=== PATIENT | male | born 1975 | race Caucasian/White ===

== ENCOUNTER 2020-10-24 14:25 | Outpatient (CLI) | payer BC, SELFPAY | END 2020-10-24 14:26 | disposition home or self-care (01) | LOC: ANHAUDIO 14:26 | PROVIDERS: Visit Provider Otolaryngology | DX: H72.90 Unspecified perforation of tympanic membrane, unspecified ear (principal) | CPT/HCPCS: 92557; 92567 ==

== ENCOUNTER 2023-01-10 13:19 | Emergency (ER) | payer BC, SELFPAY ==
[2023-01-10 13:31] VITALS: BP 131/85; PULSE 60; RESP 18; TEMP 36.7; O2SAT 99
--- NOTE | 2023-01-10 13:31 | ED.EAR ---
HPI - Ear Problem General Chief complaint: Ear Stated complaint: Rt Ear Irritation Time Seen by Provider: 01/10/23 13:37 Source: patient Mode of arrival: ambulatory Limitations: no limitations History of Present Illness HPI Narrative: 47 y/o male with hx chronic ruptured TMs presented for c/o right ear pain. States he was diagnosed with ear infection one week ago following a possible injury. States at a color run he had large amount of powder thrown into the right ear. Pt was then seen by pcp, Rx was given for oral cefdinir 01/04, and he reports compliance. However, he states symptoms worsened last night with pain surrounding the ear, yellow drainage, and worsening of already decreased hearing. Also reports the right jaw is painful to close and cheek feels tender. He took ibuprofen. Denies tinnitus, dizziness, facial numbness, n/v/f/c. Has been following with ENT for years due to TM injury, and was told he needs surgical repair of TMs. MD Complaint: ear pain Related Data Allergies Allergy/AdvReac Type Severity Reaction Status Date / Time No Known Allergies Allergy Verified 11/07/20 15:17 Review of Systems Review of Systems: CONSTITUTIONAL: Denies malaise, chills, or fever. EYES: Denies visual changes, redness, or discharge. ENT: Denies rhinorrhea, congestion, sinus pain, and sore throat. Reports ear pain CARDIOVASCULAR: Denies chest pain, palpitations, or edema. RESPIRATORY: Denies cough or dyspnea. GASTROINTESTINAL: Denies abdominal pain, nausea, vomiting, diarrhea SKIN: Denies rash or itching. MUSCULOSKELETAL: Denies myalgia. NEUROLOGIC: Denies headache. All systems reviewed & are unremarkable except as noted in HPI and below PMFSH Past Medical History Medical History (Updated 01/10/23 @ 15:09 by Mallika Bragg APRN) Conductive hearing loss in right ear Social History Social History Alcohol intake: current Substance use: never Comments At time of signature, agree with nursing past medical, surgical, social and family history. There is no relevant family history pertinent to the presenting complaint Exam Narrative: GENERAL: appears in mild pain, in no acute distress. EYES: PERRLA, conjunctivae clear ENT: Nares clear. Mucous membranes moist. Left TM pearly martinez with 2 holes noted. No effusion. Right external canal erythematous, swollen with yellow drainage; tender canal; unable to fully visualize the TM, the visualized portion is not erythematous; Right tragal tenderness. No mastoid tenderness or erythema. Oropharynx not erythematous without lesions. No drooling, no hoarseness, no trismus, uvula midline. NECK: Supple. No lymphadenopathy CHEST: Clear to auscultation, breath sounds equal. HEART: Regular rate and rhythm. No murmur heard. SKIN: Warm, dry, no rash. NEURO: Alert and oriented x3. PSYCH: Normal mood and affect Course Course Emergency Course: Patient is aware of diagnosis, understands and agrees to treatment plan. Anticipatory guidance given. Patient agrees to follow-up as directed and is aware of reasons to seek care at the emergency department. Portions of this record may have been created with voice recognition software Level of Care: Express Care Visit Vital Signs Vital signs: Vital Signs Temperature 98.0 F 01/10/23 13:31 Pulse Rate 60 01/10/23 13:31 Respiratory Rate 18 01/10/23 13:31 Blood Pressure 131/85 01/10/23 13:31 Pulse Oximetry 99 01/10/23 13:31 Oxygen Delivery Room Air 01/10/23 13:31 Temperature 98.0 F 01/10/23 13:31 Pulse Rate 60 01/10/23 13:31 Respiratory Rate 18 01/10/23 13:31 Blood Pressure 131/85 01/10/23 13:31 Pulse Oximetry 99 01/10/23 13:31 Oxygen Delivery Room Air 01/10/23 13:31 Reviewed Medical Decision Making MDM Narrative Medical decision making narrative: Discussed physical exam findings consistent with otitis externa. Will send prescription for Ciprod
== END 2023-01-10 14:00 | disposition home or self-care (01) ==
PROVIDERS: Emergency Provider Nurse Practitioner Family
DX: H60.501 Unspecified acute noninfective otitis externa, right ear (principal)
CPT/HCPCS: 99213; G0463

== ENCOUNTER 2023-06-10 12:58 | Outpatient (CLI) | payer BC, SELFPAY ==
--- NOTE | 2023-06-10 15:46 | ECG_ITS ---
SEE SCANNED COPY FOR CONFIRMED REPORT MTDD
== END 2023-06-10 12:59 | disposition home or self-care (01) ==
PROVIDERS: Visit Provider Otolaryngology
DX: Z01.818 Encounter for other preprocedural examination (principal); I10 Essential (primary) hypertension
CPT/HCPCS: 93005

== ENCOUNTER 2023-06-14 03:02 | Day surgery (SDC) | payer BC, SELFPAY ==
[2023-06-07 12:41] VITALS: BMI 30.3
--- NOTE | 2023-06-07 12:46 | PC.NURSE ---
Report to the Outpatient Waiting Room, entrance under the green pavilion located off [facility], at time 8:30 on date 06/14/23. Planned Procedure Time: 10:30. Time changes happen often and if your time is changed the preop area will call you the afternoon before. - You and your visitor will be asked to self-screen and do not enter if you have any COVID symptoms. - A mask is optional within the hospital at this time. Patients may have clear liquids (water, carbonated beverages, clear teas, apple juice) until 3 hours prior to surgery (7:30) with a maximum of 20 ounces. - No food from midnight until time of surgery Take the following medications with a SIP of water the morning of surgery: PROPRANOLOL, SERTRALINE DO NOT STOP ANY OF YOUR OTHER PRESCRIPTION MEDICATIONS PRIOR TO SURGERY ?EXCEPT THE FOLLOWING Medications to discontinue per physician: N/A Date to take last dose: N/A Please no make-up, nail guyanese, hairspray, perfume, deodorant, or body powder the day of surgery. No jewelry (including any body piercings) or valuables the day of surgery, leave them at home. Please take a shower or bath the night before, or the morning of, surgery with an antibacterial soap. Wear comfortable, loose fitting clothing. - Jewelry must be removed prior to entering the operating room. Rings and piercings that are not removed may be cut off. - The hospital will not accept responsibility for valuables. - Please leave all valuables, including medications, at home the day of surgery. If you are going home after surgery, a licensed piledriver carpenter must drive you home. - NO public transportation without another adult if you receive anesthesia. - We recommend that an adult stay with you for 24 hours following discharge. - We also recommend that you do not drive, make important decision, drink alcoholic beverages, or take any drugs that were not prescribed by your health care provider for at least 24 hours after your discharge time. Follow any additional instructions given to you from your surgeon. If you or anyone in your household have experienced Covid symptoms in the past week, please notify your surgeon or the nurse liaison at the phone number below for possible testing. Telephone instructions given to BIANCA CISNEROS and asked if any additional questions and then verbalized understanding. Patient advised to call surgeon office or pre surgery nurse liaison [phone] if any additional questions.
[2023-06-14] VITALS (7 sets, daily range): BP systolic 109–127; BP diastolic 56–89; PULSE 52–82; RESP 14–16; TEMP 36–36.6; O2SAT 96–100; BMI 30.2
--- NOTE | 2023-06-14 09:33 | PM.IMHP ---
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 Social History Social History Smoking status: Never smoker Alcohol intake: current Alcohol use details: RARE Substance use: never Substance use type: does not use Living arrangements: with family Spiritual care concerns: No Meds Home Medications and Allergies Home Medications Medication Instructions Recorded Confirmed Type propranolol 60 mg capsule,24 120 mg PO DAILY 06/07/23 06/14/23 History hr,extended release sertraline 50 mg tablet 75 mg PO DAILY 06/07/23 06/14/23 History Allergies Allergy/AdvReac Type Severity Reaction Status Date / Time No Known Allergies Allergy Verified 06/14/23 08:52 Vital Signs Vital Signs - 24 hr 06/14/23 08:55 Temperature 36.6 C Pulse Rate 52 L Respiratory Rate 14 Blood Pressure 126/89 Pulse Oximetry 98 Oxygen Delivery Room Air Exam Narrative: Right 50% TM perforation, dry edges, no infection. rest of exam wnl Assessment and Plan Assessment and plan (1) Central perforation of tympanic membrane, right ear: Code(s): H72.01 - Central perforation of tympanic membrane, right ear Status: Acute Plan Right medial graft tympanoplasty. r/b/a reviewed, right ear marked, all questions answered for the pt who understands and agrees to proceed. refer to outpt H&P for further detail.
--- NOTE | 2023-06-14 09:34 | WPDHPUPDATE1 ---
History and Physical Update Update Date/Time: 06/14/23 09:34 History and Physical has been reviewed, including an updated exam of the patient. There are NO changes in the patient's condition. Risks, benefits, and alternatives have been discussed and questions answered. Patient agrees to proceed with procedure.
--- NOTE | 2023-06-14 09:35 | P.OP_ITS ---
Procedure Note - Detailed Date of Procedure 06/14/23 Pre-op Diagnosis tympanic membrane perforation right ear Post-op Diagnosis Same Procedure Performed Right tympanoplasty, medial fascial graft Surgeon Antoine Schroeder MD Anesthesia General Indications right TM perforation Findings right 30-40% central perforation, medial fascial graft Description of Procedure On the date of surgery, the patient was identified in the preoperative holding area.? The right ear was marked indicating the correct side of surgery.? They consented to surgery and was brought back to the operating room and placed under general anesthesia.? A timeout was performed verifying the correct patient identity and procedure to be performed.? The bed was rotated 180 degrees and a small amount of hair was trimmed from the postauricular area.? They were then prepped and draped in standard fashion for right sided tympanoplasty. Attention first was directed through the ear canal.? Cerumen was removed under binocular microscopy and the perforation was examined and found to be 40-50% of the size of the tympanic membrane.? The middle ear space was dry.? The edges of the perforation were freshened using a black pick and microcup forceps.? Next, a 4 quadrant injection was performed with 1% lidocaine with 1:100k epinephrine.? The postauricular sulcus was also injected.? Using an angled and straight [place] blade, a vascular strip was elevated and tympanomeatal flap incisions were made.? The tympanomeatal flap was then elevated partially and a cotton ball soaked in 1:1000 epinephrine diluted with 10cc of saline was placed in the canal . Next, attention was directed behind the ear.? An incision was made in the post- auricular sulcus.? Using bovie electrocautery, dissection was performed through the subcutaneous tissues down to the level of the fascia.? The temporalis fascia was then identified and dissected free superficially and deep.? A 15 blade was used to incise through the fascia and then was elevated.? A 2x2cm window of fa scia was then harvested, flattened on a niurka block and then placed in a graft press for 5 minutes, then opened to dry. While the graft was prepared, the tympanomeatal flap was elevated and the marshall ulus was lifted out of the annular groove.? The middle ear space was entered with a pick and the annulus was fully elevated out of the groove and the tympanomeatal flap was completely elevated.? Several small pieces of gelfoam were placed in the middle ear space.? Next, the graft was? placed in the canal and in the middle ear space medial to the [place] tympanic membrane.? Some manipulation allowed it to cover the entire perforation.? Gelfoam was then packed in the middle ear space further to bulk out the graft.? Once satisfied with the positioning covering the entire perforation, the tympanomeatal flap and graft were laid down.? The ear canal was further packed with gelfoam to the cartilaginous meatus.? The postauricular incision was then closed with 3-0 vicryl, 4-0 monocryl and dermabond in a layered fashion.? The canal was filled with mupirocin ointment and a cotton ball was placed in the meatus.? The drapes were taken down and care of the patient was returned to anesthesia who woke them up in the OR and transferred to the PACU for recovery in stable condition without complication. Estimated Blood Loss 5 Drains No Packing Yes (gelfoam) Pathology None sent Complications No immediate complications Condition Stable Disposition PACU
--- NOTE | 2023-06-14 09:56 | WPDANESEPPF ---
Anes - Initial Pre Proc Eval Procedure: Operation Date: 06/14/23 10:30 Proposed Procedures p Right Ear Tympanoplasty - Antoine Schroeder MD Date/Time: 06/14/23 09:56 Surgeon: Antoine Schroeder MD Pre Op Diagnosis: tympanic membrane perforation right ear Patient Data Age: 48 Gender: M Height: 1.91 m Weight: 109.9 kg Last Vital Signs Temp 36.6 C 06/14/23 08:55 Pulse 52 L 06/14/23 08:55 Resp 14 06/14/23 08:55 BP 126/89 06/14/23 08:55 Pulse Ox 98 06/14/23 08:55 O2 Del Method Room Air 06/14/23 08:55 Allergies Allergy/AdvReac Type Severity Reaction Status Date / Time No Known Allergies Allergy Verified 06/14/23 08:52 Home Medications Medication Instructions Recorded Confirmed Type propranolol 60 mg capsule,24 120 mg PO DAILY 06/07/23 06/14/23 History hr,extended release sertraline 50 mg tablet 75 mg PO DAILY 06/07/23 06/14/23 History Patient hx anesthesia problems: none Family hx anesthesia problems: none Results Review: All pre-operative results and documents have been reviewed as part of the pre-operative evaluation. [facility] Past Medical History Medical History (Updated 06/14/23 @ 09:56 by Randy Kwan MD) Conductive hearing loss in right ear HTN (hypertension) DENI (obstructive sleep apnea) Social History Social History Smoking status: Never smoker Alcohol intake: current Alcohol use details: RARE Substance use: never Substance use type: does not use Living arrangements: with family Spiritual care concerns: No Anes - Eval Final PreProcedure Day of Procedure 06/14/23 09:56 Patient weight: overweight Heart: regular rate and rhythm Lungs: clear to auscultation Airway: Mallampati scale class II Neurological: alert and oriented Last oral intake: >/= 8 hours ASA classification: III Emergent: no Anesthetic plan: proceed Anesthesia type and monitoring: general LMA and standard monitoring Results Review: All pre-operative results and documents have been reviewed as part of the pre-operative evaluation. Informed Consent: The patient's anesthetic plan and its attendant risks and benefits were discussed with the patient/family/POA. Questions were solicited and answers provided to the satisfaction of the patient/family/POA.
[2023-06-14] MEDS: LACTATED RINGERS 1,000 ML 30 ML IV CONT ×2 (10:09→12:03)
[2023-06-14] MEDS: ceFAZolin 2 GM/D5W 50 ML 2 GM/50 ML BAG IVPB (10:33)
[2023-06-14] MEDS: LIDO 1%/EPINEPHRINE 1:100,000 50 ML VIAL INFILTRATE (10:52)
[2023-06-14] MEDS: CIPROFLOXACIN HCL 0.3% OP SOLN 2.5 ML BTL 4 DROP EACH EAR (10:53)
[2023-06-14] MEDS: EPINEPHrine HCL INJ 1 MG/ML AMPUL IRRIGATION (11:06)
[2023-06-14] MEDS: MUPIROCIN 2% OINT 22 GM TUBE 1 APPLIC TOPICAL (11:50)
== END 2023-06-14 13:27 | disposition home or self-care (01) ==
PROVIDERS: PCP Family Medicine; Visit Provider Otolaryngology
PROC: (CPT 69610; principal; 2023-06-14 10:30)
DX: H72.01 Central perforation of tympanic membrane, right ear (principal); H90.11 Conductive hearing loss, unilateral, right ear, with unrestricted hearing on the contralateral side; I10 Essential (primary) hypertension; G47.33 Obstructive sleep apnea (adult) (pediatric)
CPT/HCPCS: 69610; 15769; A9270; J0171; J0690; J1100; J2250; J2405; J2704; J3010; J7120